=== PATIENT | female | born 1995 | race Caucasian/White ===

== ENCOUNTER 2023-12-07 10:13 | Emergency (ER) | payer BC, SELFPAY ==
--- NOTE | 2023-12-07 10:15 | XR_ITS ---
FINAL REPORT CLINICAL HISTORY: DROPPED CHAIR ON FOOT FINDINGS: Left foot Three views were obtained. There is no acute fracture or dislocation. The joint spaces appear normal. No soft tissue abnormality is identified. IMPRESSION: No acute process. Reviewed, Interpreted and Dictated by Edgar Haque III, MD Transcribed by Roya Mcnally Authenticated and [facility]
--- NOTE | 2023-12-07 10:22 | XR_ITS ---
FINAL REPORT CLINICAL HISTORY: DROPPED RECLINER ON FOOT FINDINGS: Left ankle Three views were obtained. There is no acute fracture or dislocation. The joint spaces appear normal. No soft tissue abnormality is identified. IMPRESSION: No acute process. Reviewed, Interpreted and Dictated by Edgar Haque III, MD Transcribed by Roya Mcnally Authenticated and . [facility]
[2023-12-07 10:50] VITALS: BP 109/68; PULSE 103; RESP 18; TEMP 36.9; O2SAT 99; BMI 25.7
--- NOTE | 2023-12-07 11:16 | ED_ITS ---
Discharge Plan Disposition Patient Disposition: Home, Self-Care Condition: Good Prescriptions Prescriptions: No Action [id number]-[id number] [Bromfed DM] 2-30-10 mg/5 mL syrup 10 ml PO Q4-6H PRN (Reason: cold symptoms) Qty: 240 0RF loratadine 10 mg tablet 10 mg PO ONCE Qty: 30 0RF Referrals Follow up/Referrals: Provider,Referral, MD [Primary Care Provider] - See instructions Activity Restrictions/Add. Instructions Additional Instructions/Restrictions: *weight bearing as tolerated *RICE, Rest the extremity, Ice 15-20 minutes 3-4 times daily, Compress- wear the adama wrap as discussed as much as possible to help reduce swelling and pain, Elevate the extremity when at rest *Adama wrap is for support and help control swelling, use it except in the shower. Be sure that is not to tight but not to loose either *Elevate when resting? *Ibuprofen 600-800mg every 6-8 hours as needed for pain an inflammation. If need something more can take Tylenol in between doses of Ibuprofen to help Immediately follow up with your family doctor for new or worsening of symptoms, or no noticeable improvement over the next 3-5 days Clinical Impressions Clinical Impression: Contusion of foot Instructions Patient Instructions: How To Perform RICE (Rest, Ice, Compress, Elevate), How to Use a Walking Boot Discharge ED Provider: Maxine Pérez [facility] General Stated complaint: dropped recliner on L foot ao Mode of Arrival: Ambulatory Source of Information: Patient Limitations: No Limitations Time Seen by Provider: 12/07/23 11:17 Description of Symptoms (Recalled from Triage Doc. by RN): PATIENT REPORTS SHE WAS CARRYING A RECLINER DOWN STEPS ON TUESDAY WHEN THE RECLINER FELL ON HER LEFT FOOT HEENT Symptoms (Recalled from RN notes): No Resp Symptoms (Recalled from RN notes): No Skin Symptoms (Recalled from RN notes): No MS Symptoms (Recalled from RN notes): Yes Functional Status (Recalled from RN notes): WNL History of Present Illness Provider Complaint: Patient states that last she was carrying a recliner down the steps and slipped and fell and the recliner landed on her left foot States that she was having pain, swelling and bruising so she bought a walking boot and thought it would get better but she is still having swelling and pain so she came in to get it checked Related Data Home Medications Medication Instructions Recorded Confirmed norethindrone acetate 1 mg-ethinyl 1 tab PO ONCE 01/20/18 estradiol 20 mcg tablet (Junel) Previous Rx's Medication Instructions Recorded rikgbfrigrgyeqo-ioliwwedkalvjia-DU 10 ml PO Q4-6H PRN cold symptoms 01/20/18 2 mg-30 mg-10 mg/5 mL oral syrup #240 mL (Bromfed DM) loratadine 10 mg tablet 10 mg PO ONCE #30 tabs 01/20/18 Allergies Allergy/AdvReac Type Severity Reaction Status Date / Time No Known Allergies Allergy Unverified 01/20/18 10:11 Worker's Comp Is this a Worker's Comp case?: No [facility] Disclaimer: The information contained in this section may have been updated after the patient was seen, as this information can be updated by other users. Social History Smoking Status: Never smoker alcohol intake: current substance use type: denies use current occupational status: employed Travel in the last 8 weeks: None ROS Obtained: Yes All systems reviewed & no additional complaints except as documented and Yes Systems reviewed as appropriate & no additional complaints except as documented ENT Ears, Nose, Mouth, and Throat: Reports system reviewed and no additional complaints, except as documented and Reports as per HPI Cardiovascular Cardiovascular: Reports system reviewed and no additional complaints, except as documented and Reports as per HPI Respiratory Respiratory: Reports system reviewed and no additional complaints, except as documented and Reports as per HPI Gastrointestinal Gastrointestingal: Reports system reviewed and no additional complaints, except as documented and as per HPI Musculoskeletal Musculoskeletal: Reports system reviewed and no additional complaints, except as documented and Reports as per HPI Comments: Pain, swelling and bruising to left foot after dropping recliner on it last Physical Exam General General appearance: alert and in no apparent distress ENT ENT exam: Present mucous membranes moist Respiratory Respiratory exam: Present normal lung sounds bilaterally; Absent respiratory distress or wheezes Cardiovascular Cardiovascular exam: Present regular rate, normal rhythm and normal heart sounds Expanded Lower Extremity Exam Left: Ankle exam: Present tenderness, swelling and ecchymosis; Absent erythema Foot/toe exam: Present tenderness, swelling and ecchymosis; Absent erythema Gait: not tested/not observed Neurological Exam Neurological exam: Present alert and oriented X3 Medical Decision Making Craig Inquiry Pt receiving controlled substance: No Craig was queried for this patient: No Vital Signs: 12/07/23 10:50 Temperature 98.5 F Temperature Source Oral Pulse Rate [Right Brachial] 103 H Respiratory Rate 18 Blood Pressure [Right Arm] 109/68 L Blood Pressure Mean [Right Arm] 81 Blood Pressure Source [Right Arm] Automatic Cuff Blood Pressure Position [Right Arm] Sitting 02 Sat by Pulse Oximetry 99 Oxygen Delivery Method Room Air Orders (Tests/Meds): ORDERS Category Date Time Status Ankle XR - Left minimum 3 Views [XR ankle LT min 3V] Exams 12/07/23 10:22 Taken Stat XR foot LT min 3V Stat Exams 12/07/23 10:15 Taken Radiology Data #1: Image(s): Ankle Image Reviewed: Yes I have reviewed radiologist's interpretation no acute process #2: Image(s): Foot/Toes Image Reviewed: Yes I have reviewed radiologist's interpretation no acute process
[2023-12-07 12:43] VITALS: BP 109/68; PULSE 103; RESP 18; TEMP 36.9; O2SAT 99
== END 2023-12-07 12:47 | disposition home or self-care (01) ==
PROVIDERS: Emergency Provider Nurse Practitioner
DX: S90.32XA Contusion of left foot, initial encounter (principal); W20.8XXA Other cause of strike by thrown, projected or falling object, initial encounter
CPT/HCPCS: 73610; 73630; 99203; 99212; G0463